=== PATIENT | male | born 1970 | race Caucasian/White ===

== ENCOUNTER 2018-02-02 13:23 | Emergency (ER) | payer OTHER ==
[2018-02-02 13:36] VITALS: BP 130/78; PULSE 78; RESP 16; TEMP 98.4
--- NOTE | 2018-02-02 13:45 | ED ---
General Adult HPI - General Chief complaint: Skin/Abscess/Foreign Body Stated complaint: swelling in neck Time Seen by Provider: 02/02/18 13:37 Source: patient Mode of arrival: ambulatory Limitations: no limitations - History of Present Illness Initial comments: This 47-year-old white male presents with a complaint of some slight tenderness present to his left anterior neck present for one day. He denies any sore throat, earache, fever, or chills. The symptomatology is mild in nature. He asked for a work note for today. No other complaints or modifying factors. - Related Data Previous Rx's Medication Instructions Recorded HYDROcodone/APAP 5-325MG [[place] 1 - 2 tab PO Q4HR PRN #10 tab 08/26/15 5-325] Ibuprofen [Motrin] 600 mg PO Q6HR PRN #30 tab 08/26/15 Sulfamethox-Tmp 800-160Mg [Bactrim 2 tab PO BID #40 tab 08/26/15 DS 800-160 mg] Allergies Allergy/AdvReac Type Severity Reaction Status Date / Time No Known Allergies Allergy Verified 02/02/18 13:35 Review of Systems ROS Statement: Those systems with pertinent positive or pertinent negative responses have been documented in the HPI. ROS Other: All systems not noted in ROS Statement are negative. Past Medical History Past Medical History: No Reported History History of Any Multi-Drug Resistant Organisms: None Reported Past Surgical History: No Surgical Hx Reported Past Psychological History: No Psychological Hx Reported Smoking Status: Current every day smoker Past Alcohol Use History: None Reported Past Drug Use History: None Reported General Exam Limitations: no limitations General appearance: alert, in no apparent distress Head exam: Present: atraumatic, normocephalic Eye exam: Present: normal appearance Pupils: Present: normal accommodation ENT exam: Present: normal oropharynx, mucous membranes moist, TM's normal bilaterally, other (The patient has dentures to his upper jaw. There are only 2 teeth present in the right lower jaw on the right side. There is no tenderness upon palpation. Oropharynx is otherwise clear.) Neck exam: Present: lymphadenopathy (There is some minimal lymphadenopathy noted in the left anterior neck in the area of tenderness.) Neurological exam: Present: alert, oriented X3 Psychiatric exam: Present: normal affect, normal mood Course Vital Signs 02/02/18 13:34 Temperature 98.4 F Pulse Rate 78 Respiratory 16 Rate Blood Pressure 130/78 O2 Sat by Pulse 99 Oximetry Medical Decision Making - Medical Decision Making The patient was seen and examined. It is felt as though he has some very minimal lymphadenopathy. It is felt as though he stable for discharge home and to observe his symptoms and follow-up with his doctor if symptoms do worsen or return to the ER. Work note is given Disposition Clinical Impression: Lymphadenopathy Disposition: HOME SELF-CARE Condition: Good Instructions: Lymphadenopathy (ED) Additional Instructions: Please take Tylenol and/or Motrin if needed for any pain. Is patient prescribed a controlled substance at d/c from ED?: No Referrals: Susana Brumfield MD [Primary Care Provider] - 1-2 days Time of Disposition: 13:44
== END 2018-02-02 13:55 | disposition home or self-care (01) ==
LOC: EC 13:23
DX: R59.1 Generalized enlarged lymph nodes (principal); F17.200 Nicotine dependence, unspecified, uncomplicated
CPT/HCPCS: 99283

== ENCOUNTER 2019-01-03 08:17 | Emergency (ER) | payer OTHER ==
[2019-01-03 08:30] VITALS: BP 138/73; PULSE 70; RESP 18; TEMP 99
[2019-01-03] MEDS ORDERED: LIDOCAINE 1% INJ 10MG/ML (20 ML MDV) SQ ONE (08:42)
[2019-01-03] MEDS ORDERED: SULFAMETH-TMP DS STARTER PACK 2 TAB BTL PO STA (08:46)
--- NOTE | 2019-01-03 08:46 | ED ---
Skin/Abscess/FB HPI - General Chief complaint: Skin/Abscess/Foreign Body Stated complaint: Abscess Time Seen by Provider: 01/03/19 08:32 Source: patient, RN notes reviewed, old records reviewed Mode of arrival: ambulatory Limitations: no limitations - History of Present Illness Initial comments: Patient is a 48-year-old male, with a previous history of IV drug abuse, but denies any recent use. He presents today with complaints of an abscess over his left upper arm. Patient states he's had in a similar location before. Patient states that he has had no fevers or chills. Denies any constitutional symptoms. Patient states he's had no history of resistant infections. Patient states he has full range of motion and sensation. Patient denies any other symptoms at this time - Related Data Previous Rx's Medication Instructions Recorded Sulfamethox-Tmp 800-160Mg [Bactrim 2 tab PO Q12HR #40 tab 01/03/19 DS 800-160 mg] Allergies Allergy/AdvReac Type Severity Reaction Status Date / Time No Known Allergies Allergy Verified 02/02/18 13:48 Review of Systems ROS Statement: Those systems with pertinent positive or pertinent negative responses have been documented in the HPI. ROS Other: All systems not noted in ROS Statement are negative. Past Medical History Past Medical History: No Reported History History of Any Multi-Drug Resistant Organisms: None Reported Past Surgical History: No Surgical Hx Reported Past Psychological History: No Psychological Hx Reported Smoking Status: Current every day smoker Past Alcohol Use History: None Reported Past Drug Use History: None Reported General Exam - General Exam Comments Initial Comments: 48-year-old male. Alert and oriented. No significant distress. Limitations: no limitations General appearance: alert, in no apparent distress Head exam: Present: atraumatic Eye exam: Present: normal appearance, PERRL, EOMI. Absent: scleral icterus, conjunctival injection, periorbital swelling ENT exam: Present: normal exam, mucous membranes moist Neck exam: Present: normal inspection. Absent: tenderness, meningismus, lymphadenopathy Respiratory exam: Present: normal lung sounds bilaterally. Absent: respiratory distress, wheezes, rales, rhonchi, stridor Cardiovascular Exam: Present: regular rate, normal rhythm, normal heart sounds. Absent: systolic murmur, diastolic murmur, rubs, gallop, clicks GI/Abdominal exam: Present: soft, normal bowel sounds. Absent: distended, tenderness, guarding, rebound, rigid Extremities exam: Present: normal inspection, full ROM, normal capillary refill, other (Patient is a 5 cm erythematous abscess over the left upper arm over biceps.). Absent: tenderness, pedal edema, joint swelling, calf tenderness Back exam: Present: normal inspection Neurological exam: Present: alert, oriented X3, CN II-XII intact Psychiatric exam: Present: normal affect, normal mood Skin exam: Present: warm, dry, intact, normal color. Absent: rash Course Vital Signs 01/03/19 08:28 Temperature 99.0 F Pulse Rate 70 Respiratory 18 Rate Blood Pressure 138/73 O2 Sat by Pulse 96 Oximetry Procedures - Incision & Drainage Site: upper extremity (left upper arm) Size (cm): 5 Anesthetic Used: lidocaine 1% Amount (mLs): 5 Sterile Field Used?: Yes Scalpel Used: #11 I&D Drainage Obtained: Pus, Blood Packing: Iodoform Culture Obtained?: Yes Patient Tolerated Procedure: well, no complications Medical Decision Making - Medical Decision Making Patient is a 48-year-old male present to his left upper arm abscess. This was incised and drained approximately 15 mL of Prelone fluid was removed. Patient had iodoform packing placed. I discussed removing the packing in 2 days. Patient will be started on Bactrim DS. Denies any fever or any other symptoms. He does have history of IV drug use but denies use and recent years. Patient has no other complaints. Discussed appropriate PCP follow-up. All questions answered. Disposition Clinical Impression: Abscess of left arm Disposition: HOME SELF-CARE Condition: Good Instructions (If sedation given, give patient instructions): Abscess Incision and Drainage (ED) Additional Instructions: Remove the packing in 2 days. Take antibiotics as prescribed. Close follow-up with her primary care physician. Return to the emergency department if any alarming signs or symptoms occur. Prescriptions: Sulfamethox-Tmp 800-160Mg [Bactrim DS 800-160 mg] 2 tab PO Q12HR #40 tab Is patient prescribed a controlled substance at d/c from ED?: No Referrals: Susana Brumfield MD [Primary Care Provider] - 1-2 days Time of Disposition: 08:49
== END 2019-01-03 09:41 | disposition home or self-care (01) ==
LOC: EC 08:17
DX: L02.414 Cutaneous abscess of left upper limb (principal); F17.200 Nicotine dependence, unspecified, uncomplicated
CPT/HCPCS: 87070; 87205; 99283; 10060; J2001